=== PATIENT | male | born 1940 | race Caucasian/White ===

== ENCOUNTER 2016-11-22 02:59 | Observation (INO) | payer MEDICARE ==
[~2016-11-22] VITALS: Ht 188 cm; Wt 58.7 kg
[~2016-11-22 02:59] MED LIST: ALLOPURINOL300 MG PO; CIPRO500 MG OR; LISINOPRIL10 MG PO; LOPID600 MG PO; MEDDOSEPAK OR; VENTOLIN HFA IN; [UNRECOGNIZED DRUG - REMARK]; [UNRECOGNIZED DRUG - REMARK]
[2016-11-22] MEDS ORDERED: METOPROL TAR25 MG PO (03:14)
[2016-11-22] MEDS ORDERED: PEPCID20 MG PO (03:14)
[2016-11-22] MEDS ORDERED: LOTREL1 CA4 PO (03:16)
[2016-11-22] MEDS ORDERED: LIPITOR20 MG PO (03:16)
[2016-11-22] MEDS ORDERED: SYMBICORT1 AE1 IN (03:16)
[2016-11-22] MEDS ORDERED: TAMSULOSIN0.4 MG PO (03:16)
[2016-11-22] MEDS ORDERED: ASPIRIN 81 LOW81 MG PO (03:17)
[2016-11-22 03:29] LABS: HEMATOCRIT 35.4 % (39.0-50.0); HEMOGLOBIN 11.6 g/dl (14.0-18.0); IMMATURE GRANULOCYTES 0.4 % (0.0-1.0); MEAN CELL VOLUME 93.4 fL CALC (80.0-100.0); MEAN CORPUSCULAR HGB 30.6 pG CALC (26.0-32.0); MEAN CORPUSCULAR HGB CONC 32.8 g/L CALC (32.0-36.0); NEUT# 8.21 thou/uL (1.82-7.42); RED BLOOD COUNT 3.79 mill/uL (4.70-6.10)
[2016-11-22 03:46] LABS: ALBUMIN 3.3 g/dL (3.2-5.0); ALKALINE PHOSPHATASE 75 u/l (38-126); ANION GAP 11 (6-22 (CALC)); BILIRUBIN, TOTAL 0.6 mg/dL (0.0-1.4); BUN 19 mg/dL (8-23); BUN/CREATININE RATIO 26 (12-20 (CALC)); CALCIUM 8.6 mg/dL (8.4-10.2); CARBON DIOXIDE 31 mmol/l (22-30); CHLORIDE 103 mmol/l (95-108); CREATININE 0.7 mg/dL (0.7-1.3); GFR > 60 ML/MIN (>=60 (CALC)); GFR FOR AFR.AMER. > 60 ML/MIN (>=60 (CALC)); GLUCOSE 87 mg/dL (82-115); POTASSIUM 3.3 mmol/l (3.5-5.1); SGOT/AST 27 u/l (19-48); SGPT/ALT 32 u/l (11-66); SODIUM 143 mmol/l (137-146); TOTAL PROTEIN 5.9 g/dL (6.3-8.2)
[2016-11-22 03:54] LABS: INTERNATIONAL NORMALIZED RATIO 0.9 RATIO (0.7-1.3); PROTHROMBIN TIME 10.1 SECONDS (9.0-12.5)
[2016-11-22 04:27] LABS: MYOGLOBIN 47 ng/mL (0 - 121)
[2016-11-22 06:36] LABS: URINE BILIRUBIN - DIPSTICK NEGATIVE (NEGATIVE); URINE BLOOD DIPSTICK NEGATIVE (NEGATIVE); URINE CLARITY CLEAR; URINE COLOR YELLOW; URINE GLUCOSE - DIPSTICK NEGATIVE (NEGATIVE); URINE KETONE NEGATIVE (NEGATIVE); URINE LEUK ESTERASE NEGATIVE (NEGATIVE); URINE NITRITE - DIPSTICK NEGATIVE (Negative); URINE PH 5.5 (4.5-8.0); URINE PROTEIN - DIPSTICK NEGATIVE (NEG-TRACE); URINE SPECIFIC GRAVITY 1.015; URINE UROBILINOGEN - DIPSTICK 0.2 E.U./dL (0.2)
[2016-11-22 07:21] VITALS: BP 112/58
[2016-11-22] MEDS ORDERED: OXYCODONE20 M1 PO (10:24)
[2016-11-22 11:29] VITALS: BP 93/45
[2016-11-22] MEDS ORDERED: PREDNISONE10 MG PO (13:16)
[2016-11-22] MEDS ORDERED: IPRATROPIU0.5 MG/3 M IN (13:16)
[2016-11-22] MEDS ORDERED: ZITHROMAX500 MG PO (13:16)
[2016-11-22 16:00] VITALS: BP 116/64
[2016-11-22 20:48] VITALS: BP 104/55
[2016-11-23 00:40] VITALS: BP 114/59
[2016-11-23 04:40] VITALS: BP 129/69
[2016-11-23 06:20] LABS: HEMATOCRIT 36.2 % (39.0-50.0); HEMOGLOBIN 11.9 g/dl (14.0-18.0); MEAN CELL VOLUME 92.8 fL CALC (80.0-100.0); MEAN CORPUSCULAR HGB 30.5 pG CALC (26.0-32.0); MEAN CORPUSCULAR HGB CONC 32.9 g/L CALC (32.0-36.0); RED BLOOD COUNT 3.9 mill/uL (4.70-6.10); RED CELL DISTRI WIDTH 14.8 % (11.5-15.5)
[2016-11-23 06:48] LABS: ANION GAP 15 (6-22 (CALC)); BUN 18 mg/dL (8-23); BUN/CREATININE RATIO 29 (12-20 (CALC)); CALCIUM 9.6 mg/dL (8.4-10.2); CARBON DIOXIDE 31 mmol/l (22-30); CHLORIDE 99 mmol/l (95-108); CREATININE 0.6 mg/dL (0.7-1.3); GFR > 60 ML/MIN (>=60 (CALC)); GFR FOR AFR.AMER. > 60 ML/MIN (>=60 (CALC)); GLUCOSE 145 mg/dL (82-115); POTASSIUM 4.1 mmol/l (3.5-5.1); SODIUM 140 mmol/l (137-146)
[2016-11-23 08:43] VITALS: BP 118/62
[2016-11-23 08:47] VITALS: BP 118/62
== END 2016-11-23 12:27 | disposition home or self-care (01) ==
LOC: ED 02:59 → ED-I 05:40 → ED 06:27 → MS2 06:28
PROVIDERS: Emergency Medicine; ADMIT Internal Medicine; ATTEND Internal Medicine
DX: J44.1 Chronic obstructive pulmonary disease with (acute) exacerbation (principal); E78.5 Hyperlipidemia, unspecified; K21.9 Gastro-esophageal reflux disease without esophagitis; I25.10 Atherosclerotic heart disease of native coronary artery without angina pectoris; F17.210 Nicotine dependence, cigarettes, uncomplicated; E87.6 Hypokalemia; I73.9 Peripheral vascular disease, unspecified; J96.21 Acute and chronic respiratory failure with hypoxia; I25.5 Ischemic cardiomyopathy; G89.4 Chronic pain syndrome; I11.9 Hypertensive heart disease without heart failure; I65.22 Occlusion and stenosis of left carotid artery; Z99.81 Dependence on supplemental oxygen; Z85.71 Personal history of Hodgkin lymphoma; Z95.0 Presence of cardiac pacemaker; Z95.828 Presence of other vascular implants and grafts

== ENCOUNTER 2016-12-10 20:07 | Observation (INO) | payer MEDICARE ==
[~2016-12-10] VITALS: Ht 188 cm; Wt 58.0 kg
[~2016-12-10 20:07] MED LIST changes: +ASPIRIN 81 LOW81 MG PO; +IPRATROPIU0.5 MG/3 M IN; +LIPITOR20 MG PO; +LOTREL1 CA4 PO; +METOPROL TAR25 MG PO; +OXYCODONE20 M1 PO; +PEPCID20 MG PO; +PREDNISONE10 MG PO; +SYMBICORT1 AE1 IN; +TAMSULOSIN0.4 MG PO; +ZITHROMAX500 MG PO
[2016-12-10 20:28] LABS: HEMATOCRIT 34.6 % (39.0-50.0); HEMOGLOBIN 11.4 g/dl (14.0-18.0); IMMATURE GRANULOCYTES 0.3 % (0.0-1.0); MEAN CELL VOLUME 93.5 fL CALC (80.0-100.0); MEAN CORPUSCULAR HGB 30.8 pG CALC (26.0-32.0); MEAN CORPUSCULAR HGB CONC 32.9 g/L CALC (32.0-36.0); NEUT# 8.65 thou/uL (1.82-7.42); RED BLOOD COUNT 3.7 mill/uL (4.70-6.10); RED CELL DISTRI WIDTH 15.1 % (11.5-15.5)
[2016-12-10 20:48] LABS: ALBUMIN 3.2 g/dL (3.2-5.0); ALKALINE PHOSPHATASE 62 u/l (38-126); ANION GAP 15 (6-22 (CALC)); BILIRUBIN, TOTAL 0.6 mg/dL (0.0-1.4); BUN 33 mg/dL (8-23); BUN/CREATININE RATIO 26 (12-20 (CALC)); CALCIUM 8.7 mg/dL (8.4-10.2); CARBON DIOXIDE 32 mmol/l (22-30); CHLORIDE 95 mmol/l (95-108); CREATININE 1.3 mg/dL (0.7-1.3); GFR 54 ML/MIN (>=60 (CALC)); GFR FOR AFR.AMER. > 60 ML/MIN (>=60 (CALC)); GLUCOSE 121 mg/dL (82-115); SGOT/AST 21 u/l (19-48); SGPT/ALT 30 u/l (11-66); SODIUM 138 mmol/l (137-146); TOTAL PROTEIN 5.9 g/dL (6.3-8.2)
[2016-12-10] MEDS ORDERED: DALIRESP500 MCG PO (20:52)
[2016-12-10 21:00] LABS: MYOGLOBIN 145 ng/mL (0 - 121)
[2016-12-10 23:14] LABS: URINE BILIRUBIN - DIPSTICK NEGATIVE (NEGATIVE); URINE BLOOD DIPSTICK NEGATIVE (NEGATIVE); URINE CLARITY CLEAR; URINE COLOR YELLOW; URINE GLUCOSE - DIPSTICK NEGATIVE (NEGATIVE); URINE KETONE NEGATIVE (NEGATIVE); URINE LEUK ESTERASE NEGATIVE (NEGATIVE); URINE NITRITE - DIPSTICK NEGATIVE (Negative); URINE PH 5.5 (4.5-8.0); URINE PROTEIN - DIPSTICK NEGATIVE (NEG-TRACE); URINE UROBILINOGEN - DIPSTICK 0.2 E.U./dL (0.2)
[2016-12-11 00:35] VITALS: BP 119/68
[2016-12-11 04:47] VITALS: BP 103/59
[2016-12-11 08:50] VITALS: BP 118/63
[2016-12-11 11:05] VITALS: BP 120/61
[2016-12-11] MEDS ORDERED: IPRATROPIU0.5 MG/3 M IN (12:13)
[2016-12-11] MEDS ORDERED: VENTOLIN H108 MCG/AC IN (12:13)
[2016-12-11] MEDS ORDERED: LOPRESSOR 550 MG/TAB PO (12:18)
[2016-12-11] MEDS ORDERED: PREDNISONE10 MG PO (12:18)
[2016-12-11] MEDS ORDERED: POM PO ×2 (12:18→12:19)
[2016-12-11] MEDS ORDERED: PEPCID20 MG PO (12:18)
[2016-12-11] MEDS ORDERED: LISINOPRIL20 M1 PO (12:18)
[2016-12-11] MEDS ORDERED: TAMSULOSIN HCL0.4 MG PO (12:18)
[2016-12-11] MEDS ORDERED: AMLODIPINE BESYL5 MG PO (12:18)
[2016-12-11] MEDS ORDERED: ASPIRIN CHEWABL81 MG PO (12:18)
[2016-12-11] MEDS ORDERED: LIPITOR20 MG PO (12:18)
[2016-12-11 16:10] VITALS: BP 122/47
== END 2016-12-11 16:26 | disposition home or self-care (01) ==
LOC: ED 20:07 → ED-I 22:15 → ED 22:40 → MS2 22:41
PROVIDERS: Emergency Medicine; ADMIT Internal Medicine; ATTEND Internal Medicine
DX: J44.1 Chronic obstructive pulmonary disease with (acute) exacerbation (principal); N17.9 Acute kidney failure, unspecified; I11.0 Hypertensive heart disease with heart failure; I50.22 Chronic systolic (congestive) heart failure; K21.9 Gastro-esophageal reflux disease without esophagitis; I25.2 Old myocardial infarction; F17.210 Nicotine dependence, cigarettes, uncomplicated; R00.2 Palpitations; G89.4 Chronic pain syndrome; I73.9 Peripheral vascular disease, unspecified; E78.5 Hyperlipidemia, unspecified; E86.0 Dehydration; D64.9 Anemia, unspecified; F41.9 Anxiety disorder, unspecified; C81.90 Hodgkin lymphoma, unspecified, unspecified site; I25.10 Atherosclerotic heart disease of native coronary artery without angina pectoris; R64 Cachexia; M62.59 Muscle wasting and atrophy, not elsewhere classified, multiple sites; F12.90 Cannabis use, unspecified, uncomplicated; J96.21 Acute and chronic respiratory failure with hypoxia; Z95.0 Presence of cardiac pacemaker; Z95.5 Presence of coronary angioplasty implant and graft; Z95.828 Presence of other vascular implants and grafts; Z79.891 Long term (current) use of opiate analgesic; Z99.81 Dependence on supplemental oxygen; Z68.1 Body mass index [BMI] 19.9 or less, adult

== ENCOUNTER 2017-10-20 14:04 | Inpatient (IN) | payer MEDICARE ==
[~2017-10-20] VITALS: Ht 188 cm; Wt 55.5 kg
[~2017-10-20 14:04] MED LIST changes: +AMLODIPINE BESYL5 MG PO; +ANORO ELLIPTA 61 AER IN; +ASPIRIN CHEWABL81 MG PO; +BENZOCAINE 20%; +DALIRESP500 MCG PO; +LISINOPRIL20 M1 PO; +LOPRESSOR 550 MG/TAB PO; +POM PO; +POTASSIUM CHLO20 ME2 PO; +TAMSULOSIN HCL0.4 MG PO; +VENTOLIN H108 MCG/AC IN; +[UNRECOGNIZED DRUG - OTHER]
--- NOTE | 2017-10-20 14:04 | NUR ---
PT TO ROOM 9 VIA EMS. O2 3L/M VIA NC.
[2017-10-20] MEDS ORDERED: ANORO ELLIPTA 61 AER IN (14:50)
[2017-10-20] MEDS ORDERED: BENAZEPRIL10 MG PO (14:53)
[2017-10-20] MEDS ORDERED: AMLODIPINE5 MG PO (14:53)
[2017-10-20] MEDS ORDERED: FUROSEMIDE40 MG PO (14:54)
[2017-10-20 15:02] LABS: HEMATOCRIT 36.5 % (39.0-50.0); HEMOGLOBIN 11.8 g/dl (14.0-18.0); IMMATURE GRANULOCYTES 0.3 % (0.0-5.0); MEAN CORPUSCULAR HGB 32.1 pG CALC (26.0-32.0); MEAN CORPUSCULAR HGB CONC 32.3 g/L CALC (32.0-36.0); NEUT# 7.11 thou/uL (1.82-7.42); RED BLOOD COUNT 3.68 mill/uL (4.70-6.10); RED CELL DISTRI WIDTH 15.8 % (11.5-15.5)
--- NOTE | 2017-10-20 15:05 | NUR ---
[facility] COMPLETED WITH PATIENT, PROVIDED BAG WITH HOME MEDICATIONS. REPORTS BEING TAKEN OFF PAIN MEDICATION TREATMENT FOR GENERALIZED PAIN BY PAIN MANAGEMENT DOCTOR. CALL LIGHT WITHIN REACH, WILL CONTINUE TO MONITOR. WARM BLANKET PROVIDED.
[2017-10-20 15:11] LABS: MEAN CELL VOLUME 99.2 fL CALC (80.0-100.0)
[2017-10-20 15:17] LABS: ALBUMIN 4.1 g/dL (3.2-5.0); ALKALINE PHOSPHATASE 72 u/l (38-126); BILIRUBIN, TOTAL 0.3 mg/dL (0.0-1.4); BUN 42 mg/dL (8-23); BUN/CREATININE RATIO 35 (12-20 (CALC)); CHLORIDE 109 mmol/l (95-108); CREATININE 1.2 mg/dL (0.7-1.3); GFR 59 ML/MIN (>=60 (CALC)); GFR FOR AFR.AMER. > 60 ML/MIN (>=60 (CALC)); SGOT/AST 30 u/l (19-48); SGPT/ALT 38 u/l (11-66); SODIUM 143 mmol/l (137-146); TOTAL PROTEIN 7.1 g/dL (6.3-8.2)
[2017-10-20 15:18] LABS: ANION GAP 16 (6-22 (CALC)); CARBON DIOXIDE 23 mmol/l (22-30); POTASSIUM 4.6 mmol/l (3.5-5.1)
[2017-10-20 15:29] LABS: MYOGLOBIN 60 ng/mL (0 - 121)
--- NOTE | 2017-10-20 16:03 | NUR ---
PATIENT RESTING ON STRETCHER, ALERT AND ORIENTED X4. URINE SAMPLE OBTAINED. NS 500 ML BOLUS PER INFUSING WELL. WILL CONTINUE TO MONITOR.
--- NOTE | 2017-10-20 16:25 | NUR ---
AT BEDSIDE TO DISCUSS RESULTS WITH PATIENT.
[2017-10-20 16:27] LABS: URINE BILIRUBIN - DIPSTICK NEGATIVE (NEGATIVE); URINE BLOOD DIPSTICK NEGATIVE (NEGATIVE); URINE COLOR YELLOW; URINE GLUCOSE - DIPSTICK NEGATIVE (NEGATIVE); URINE KETONE NEGATIVE (NEGATIVE); URINE LEUK ESTERASE NEGATIVE (NEGATIVE); URINE NITRITE - DIPSTICK NEGATIVE (Negative); URINE PH 5.5 (4.5-8.0); URINE PROTEIN - DIPSTICK NEGATIVE (NEG-TRACE); URINE UROBILINOGEN - DIPSTICK 0.2 E.U./dL (0.2)
[2017-10-20 16:28] LABS: URINE CLARITY CLEAR
[2017-10-20] MEDS ORDERED: PERCOCET 5/325M1 TAB PO (16:28)
--- NOTE | 2017-10-20 16:47 | NUR ---
HOME CARE INSTRUCTIONS DISCUSSED WITH PATIENT. INFORMED TO FOLLOW UP WITH PCP AND TAKE PRINTED SCRIPT TO PHARMACY. VERBAL UNDERSTANDING. CALL PLACED BY PATIENT TO FAMILY FOR TRANSPORT.
--- NOTE | 2017-10-20 17:00 | NUR ---
RETURN CALL FROM PATIENT SISTER. PATIENT STATES "SHE CAN'T COME PICK ME UP BECAUSE HER CAR DOESN'T WORK." PATIENT IS O2 DEPENDENT AND HAS NO O2 WITH HIM. PER CHARGE NURSE ANNI PATIENT TO BE TRANSPORTED VIA [facility]. PATIENT INFORMED, SITTING ON STRETCHER WITH O2 IN PLACE AT 3L/MIN VIA NASAL CANNULA.
--- NOTE | 2017-10-20 17:14 | NUR ---
BORING MACHINE OPERATOR ADVISED OF PT O2 DEPENDENCY AGREED FOR NEED OF MEDICAL TRANSPORT HOME.
--- NOTE | 2017-10-20 17:27 | NUR ---
PT AMBULATES SHORT DISTANCE TO BR AND RETURN WITHOUT O2. PT DESATTED TO 84% RA. PT RETURNED TO ROOM AND O2 REPLACED. SATS IMPROVED TO 97% O2 3L/M VIA NC. RESP EVEN AND UNLABORED. AWARE.
--- NOTE | 2017-10-20 17:33 | NUR ---
PT TO BE ADMITTED. PT INFORMED AND AGREES.
--- NOTE | 2017-10-20 17:44 | NUR ---
PATIENT INFORMED OF PENDING ADMIT, PRINTED PERCOCET SCRIPT REMOVED FROM ROOM AND SHREDDED, PLACED IN SHRED BOX PER . PATIENT STATES "THAT WAS THE WHOLE IDEA OF COMING HERE TO GET SOMETHING FOR MY PAIN." INFORMED OF NEW ORDERS TO BE COMPLETED WHEN ADMITTED. VERBAL UNDERSTANDING. ЕЛЕНА HUTTON IN TO ATTEMPT IV SITE. RT AT BEDSIDE FOR NEB TREATMENT.
--- NOTE | 2017-10-20 18:32 | NUR ---
ATTEMPT MADE TO CALL REPORT SPOKE TO STATES NURSE FRANCO WASHBURN NOT READY FOR REPORT. WILL CALL BACK.
--- NOTE | 2017-10-20 18:49 | NUR ---
ATTEMPT MADE TO CALL REPORTS, SPOKE TO NELLY. STATES NURSE NOT AVAILABLE FOR REPORT.
--- NOTE | 2017-10-20 18:57 | NUR ---
REPORT CALLED TO [facility] AND REPORT GIVEN TO ЕЛЕНА ARREDONDO FOR TRANSPORT, CARE RELINQUISHED.
--- NOTE | 2017-10-20 19:05 | NUR ---
PT ARRIVED TO FLOOR VIA STRETCHER. PT AMBULATED TO BED. VITALS OBTAINED BY PROJECT MANAGEMENT DIRECTOR. PT ORIENTED TO ROOM AND CALL LIGHT SYSTEM. RESP EVEN AND UNLABORED ON O2 3L. TELE ON. PT REPORTED A "GENERALIZED ACHE". PT REPORTED BEING OUT OF PAIN MEDS AND HAVING THIS "PAIN" FOR AWHILE. SAFETY PRECAUTIONS REINFORCED. FREQUENT ROUNDS MADE. CALL LIGHT WITHIN REACH.
[2017-10-20 19:23] VITALS: BP 106/56
--- NOTE | 2017-10-20 20:44 | NUR ---
PHONE CALL MADE TO DR. PAZ FOR ORDERS. NOTIFIED THAT PT HAD NOT BEEN GIVEN SOLUMEDROL 125MG IN ER. NEW ORDER; 21MG NICOTINE PATCH DAILY. PERCOCET 5/325MG PO Q6 PRN PAIN. NS @75 ML/HR. DUONEB Q4. PREDNISONE 50 MG PO DAILY X5 DAYS. RBVO
[2017-10-21 00:37] VITALS: BP 95/59
--- NOTE | 2017-10-21 00:42 | NUR ---
PT RESTING IN BED. PT DENIES PAIN. RESP EVEN AND UNLABORED. IV PATENT. TELE ON. CALL LIGHT WITHIN REACH.
--- NOTE | 2017-10-21 04:00 | NUR ---
PT SLEEPING WITH EYES CLOSED. RESP EVEN AND UNLABORED WITH O2 3L. TELE ON. NO DISTRESS NOTED. IV PATENT. CALL LIGHT WITHIN REACH.
[2017-10-21 04:53] VITALS: BP 109/61
--- NOTE | 2017-10-21 07:00 | NUR ---
SHIFT CHANGE REPORT JAMI BEST PT AWAKE ALERT AND ORIENTED SITTING UP IN BED AWAITING MEAL, NO C/O DISCOMFORT AT THIS TIME, CALL MCKEE IN REACH.
[2017-10-21 08:43] VITALS: BP 99/47
[2017-10-21] MEDS ORDERED: DURAGESIC25 MCG/H1 TD (14:53)
[2017-10-21] MEDS ORDERED: PERCOCET1 TA2 PO (14:54)
--- NOTE | 2017-10-21 15:54 | NUR ---
PT'S FAMILY BROUGHT IN O2 TANK FOR TRAVEL HOME, REPORTED TANK WAS NOT WORKING, FOUND TO BE EMPTY WHEN CHECKED. O2 TANK # 25 LOANED TO PT WHO PROMISED TO RETURN IN AM, PHYSICAL THERAPY COORDINATOR LORY NOTIFIED.
--- NOTE | 2017-10-21 15:54 | NUR ---
Discharge instructions given. Patient verbalizes understanding of same. Discharged in good condition via Wheelchair to Home with family. All belongings sent with pt.
== END 2017-10-21 15:53 | disposition home or self-care (01) | DRG 92 ==
LOC: ED 14:04 → ED-I 17:28 → ED 18:00 → MS2 18:01
PROVIDERS: Emergency Medicine; ADMIT General Practice; ATTEND General Practice
DX: G89.29 Other chronic pain (principal); C85.90 Non-Hodgkin lymphoma, unspecified, unspecified site; J96.11 Chronic respiratory failure with hypoxia; F11.20 Opioid dependence, uncomplicated; M54.9 Dorsalgia, unspecified; J44.9 Chronic obstructive pulmonary disease, unspecified; I10 Essential (primary) hypertension; E78.5 Hyperlipidemia, unspecified; I25.10 Atherosclerotic heart disease of native coronary artery without angina pectoris; N40.0 Benign prostatic hyperplasia without lower urinary tract symptoms; M19.90 Unspecified osteoarthritis, unspecified site; K21.9 Gastro-esophageal reflux disease without esophagitis; F17.210 Nicotine dependence, cigarettes, uncomplicated; I73.9 Peripheral vascular disease, unspecified; I25.2 Old myocardial infarction; Z95.820 Peripheral vascular angioplasty status with implants and grafts; Z95.0 Presence of cardiac pacemaker; Z95.5 Presence of coronary angioplasty implant and graft

== ENCOUNTER 2018-03-04 09:41 | Emergency (ER) | payer MEDICARE, MEDICAID ==
[~2018-03-04] VITALS: Ht 188 cm; Wt 70.0 kg
[~2018-03-04 09:41] MED LIST changes: +AMLODIPINE5 MG PO; +BENAZEPRIL10 MG PO; +DURAGESIC25 MCG/H1 TD; +FUROSEMIDE40 MG PO; +PERCOCET 5/325M1 TAB PO; +PERCOCET1 TA2 PO
[2018-03-04 10:29] LABS: HEMOGLOBIN 12.3 g/dl (14.0-18.0); IMMATURE GRANULOCYTES 0.3 % (0.0-5.0); MEAN CELL VOLUME 102.6 fL CALC (80.0-100.0); MEAN CORPUSCULAR HGB 32.4 pG CALC (26.0-32.0); MEAN CORPUSCULAR HGB CONC 31.5 g/L CALC (32.0-36.0); NEUT# 7.28 thou/uL (1.82-7.42); RED BLOOD COUNT 3.8 mill/uL (4.70-6.10)
[2018-03-04 10:45] LABS: ALBUMIN 4.4 g/dL (3.2-5.0); ALKALINE PHOSPHATASE 76 u/l (38-126); ANION GAP 19 (6-22 (CALC)); BILIRUBIN, TOTAL 0.4 mg/dL (0.0-1.4); BUN 40 mg/dL (8-23); BUN/CREATININE RATIO 29 (12-20 (CALC)); CARBON DIOXIDE 19 mmol/l (22-30); CHLORIDE 112 mmol/l (95-108); CREATININE 1.4 mg/dL (0.7-1.3); GFR 49 ML/MIN (>=60 (CALC)); GFR FOR AFR.AMER. 59 ML/MIN (>=60 (CALC)); SGOT/AST 35 u/l (19-48); SODIUM 145 mmol/l (137-146); TOTAL PROTEIN 7.7 g/dL (6.3-8.2)
[2018-03-04 10:47] LABS: POTASSIUM 5.3 mmol/l (3.5-5.1)
[2018-03-04] MEDS ORDERED: MEDDOSEPAK PO (12:22)
[2018-03-04] MEDS ORDERED: ZITHROMAX250 MG PO (12:22)
--- NOTE | 2018-03-04 13:41 | NUR ---
Contacted [facility] pharmacy in [place] for a complete medication list as the patient stated that was the pharmacy he used. Was awaiting the fax from [facility], however patient was discharged 03/04/18 at 1226.
[2018-03-04 17:09] VITALS: BP 113/55
== END 2018-03-04 17:09 | disposition home or self-care (01) ==
LOC: ED 09:41 → ED-I 10:02 → ED 10:02 → ED-I 11:41 → ED 17:09
PROVIDERS: Emergency Medicine
DX: J44.1 Chronic obstructive pulmonary disease with (acute) exacerbation (principal); J06.9 Acute upper respiratory infection, unspecified; I10 Essential (primary) hypertension; M19.90 Unspecified osteoarthritis, unspecified site; I25.2 Old myocardial infarction; F17.200 Nicotine dependence, unspecified, uncomplicated; C85.90 Non-Hodgkin lymphoma, unspecified, unspecified site; Z95.5 Presence of coronary angioplasty implant and graft; Z95.0 Presence of cardiac pacemaker; R06.02 Shortness of breath; R07.9 Chest pain, unspecified

== ENCOUNTER 2018-03-18 14:38 | Emergency (ER) | payer MEDICARE ==
[~2018-03-18] VITALS: Ht 188 cm; Wt 55.0 kg
[~2018-03-18 14:38] MED LIST changes: +MEDDOSEPAK PO; +ZITHROMAX250 MG PO
[2018-03-18 16:06] LABS: HEMATOCRIT 36.5 % (39.0-50.0); HEMOGLOBIN 11.9 g/dl (14.0-18.0); IMMATURE GRANULOCYTES 0.6 % (0.0-5.0); MEAN CELL VOLUME 100.3 fL CALC (80.0-100.0); MEAN CORPUSCULAR HGB 32.7 pG CALC (26.0-32.0); MEAN CORPUSCULAR HGB CONC 32.6 g/L CALC (32.0-36.0); NEUT# 13.26 thou/uL (1.82-7.42); RED BLOOD COUNT 3.64 mill/uL (4.70-6.10); RED CELL DISTRI WIDTH 13.9 % (11.5-15.5)
[2018-03-18 16:15] LABS: ALBUMIN 3.7 g/dL (3.2-5.0); ALKALINE PHOSPHATASE 63 u/l (38-126); ANION GAP 16 (6-22 (CALC)); BILIRUBIN, TOTAL 0.4 mg/dL (0.0-1.4); BUN 47 mg/dL (8-23); BUN/CREATININE RATIO 41 (12-20 (CALC)); CARBON DIOXIDE 22 mmol/l (22-30); CHLORIDE 109 mmol/l (95-108); CREATININE 1.2 mg/dL (0.7-1.3); GFR 59 ML/MIN (>=60 (CALC)); GFR FOR AFR.AMER. > 60 ML/MIN (>=60 (CALC)); POTASSIUM 5.7 mmol/l (3.5-5.1); SGOT/AST 27 u/l (19-48); SODIUM 141 mmol/l (137-146); TOTAL PROTEIN 6.5 g/dL (6.3-8.2)
[2018-03-18 16:48] LABS: TSH, 3RD GENERATION 0.75 uIU/mL (0.47 - 4.68)
[2018-03-18 17:21] LABS: URINE BILIRUBIN - DIPSTICK NEGATIVE (NEGATIVE); URINE BLOOD DIPSTICK NEGATIVE (NEGATIVE); URINE COLOR YELLOW; URINE GLUCOSE - DIPSTICK NEGATIVE (NEGATIVE); URINE KETONE NEGATIVE (NEGATIVE); URINE LEUK ESTERASE NEGATIVE (NEGATIVE); URINE NITRITE - DIPSTICK NEGATIVE (Negative); URINE PROTEIN - DIPSTICK NEGATIVE (NEG-TRACE); URINE SPECIFIC GRAVITY 1.015; URINE UROBILINOGEN - DIPSTICK 0.2 E.U./dL (0.2)
[2018-03-18] MEDS ORDERED: ANORO ELLIPTA 61 AER IN (17:35)
[2018-03-18] MEDS ORDERED: VENTOLIN HFA IN (17:35)
[2018-03-18] MEDS ORDERED: AMLODIPINE BESYL5 MG PO (17:36)
[2018-03-18] MEDS ORDERED: FUROSEMIDE40 MG PO (17:37)
[2018-03-18] MEDS ORDERED: BENAZEPRIL10 MG PO (17:37)
[2018-03-18] MEDS ORDERED: METOPROL TAR25 MG PO (17:38)
[2018-03-18] MEDS ORDERED: FAMOTIDINE20 M1 PO (17:38)
[2018-03-18] MEDS ORDERED: TAMSULOSIN HCL0.4 MG PO (17:39)
[2018-03-18] MEDS ORDERED: K-DUR/KLOR-CON20 MEQ PO (17:56)
[2018-03-18] MEDS ORDERED: DALIRESP500 MCG PO (17:56)
[2018-03-18 18:16] VITALS: BP 101/57
== END 2018-03-18 18:44 | disposition home or self-care (01) ==
LOC: ED 14:38 → ED-I 17:17 → ED 18:44
PROVIDERS: Emergency Medicine
DX: R53.1 Weakness (principal); E86.0 Dehydration; R51 Headache; R06.02 Shortness of breath; F17.210 Nicotine dependence, cigarettes, uncomplicated; Z91.81 History of falling; I10 Essential (primary) hypertension; I25.2 Old myocardial infarction; J44.9 Chronic obstructive pulmonary disease, unspecified